=== PATIENT | male | born 1940 ===

== ENCOUNTER 2020-08-31 21:59 | Inpatient (IN) ==
[2020-08-31] MEDS ORDERED: Albuterol/Ipratropium NEB.SOL (2.5/0.5 MG) 3 ML NEB.SOLN ONE (22:03)
[2020-08-31] MEDS ORDERED: Dexamethasone IV 4 MG/ML VIAL 1 ml VIAL IM ONE (22:13)
[2020-08-31] MEDS ORDERED: NS 0.9% 1000 ml BAG 1,000 ML IV ONE (22:13)
[2020-08-31] MEDS: Albuterol 2.5mg/3 ml (0.083%) NEB.SOLN INH SCH (22:20)
[2020-08-31 22:27] LABS: ABS Lymphocytes 0.4 10^3/ul (1.0-4.8); ABS Monocytes 0.7 10^3/ul (0-0.8); ABS Neutrophils 10.4 10^3/ul (1.5-7.7); Hematocrit 51 % (42-52); Hemoglobin 17.2 g/dL (14.0-18.0); Lymphocyte % 3.7 %; Mean Corpuscular HGB Conc 34 g/dL (31-36); Mean Corpuscular Hemoglobin 31 pg (27-31); Mean Corpuscular Volume 93 fL (80-94); Mean Platelet Volume 10.2 fL (7.4-10.4); Platelet Count 240 10^3/uL (150-450); Red Cell Distribution Width 14 % (10-15); White Blood Count 11.5 10^3/uL (3.5-10.8)
[2020-08-31 22:35] LABS: Activated Partial Thrombo Time 39.3 seconds (26.0-38.0)
[2020-08-31 22:40] LABS: ALT 85 U/L (7-52); AST 121 U/L (13-39); Albumin 3.6 g/dL (3.2-5.2); Albumin/Globulin Ratio 1.1 (1-3); Alkaline Phosphatase 93 U/L (34-104); Anion Gap 17 mmol/L (2-11); BUN/Creatinine Ratio 24.2 (8-20); Blood Urea Nitrogen 51 mg/dL (6-24); C Reactive Protein 357.11 mg/L (<8.01); CO2 Carbon Dioxide 19 mmol/L (22-32); Calcium 8.9 mg/dL (8.6-10.3); Chloride 95 mmol/L (101-111); EGFR African American 36.9 (>60); EGFR Non-African American 30.5 (>60); Globulin 3.3 g/dL (2-4); Glucose 119 mg/dL (70-100); Potassium 4.4 mmol/L (3.5-5.0); Sodium 131 mmol/L (135-145); Total Protein 6.9 g/dL (6.4-8.9)
[2020-08-31 22:49] LABS: Troponin I 0.66 ng/mL (<0.03)
[2020-08-31] MEDS ORDERED: Albuterol/Ipratropium NEB.SOL (2.5/0.5 MG) 3 ML NEB.SOLN INH SCH (23:00)
[2020-08-31 23:11] LABS: Urine Appearance Cloudy; Urine Bilirubin Negative (Negative); Urine Blood 3+ (Negative); Urine Color Amber; Urine Glucose Negative (Negative); Urine Ketones Trace (Negative); Urine Nitrite Negative (Negative); Urine Protein 2+(100 mg/dL) (Negative); Urine Specific Gravity 1.021 (1.010-1.030); Urine Urobilinogen Negative (Negative)
[2020-08-31 23:15] LABS: Urine Bacteria 1+ (Absent); Urine Granular Casts Present (Absent); Urine Red Blood Cell 3+(>10/hpf) (Absent); Urine Transitional Epithelial Present (Absent); Urine White Blood Cell 3+(>20/hpf) (Absent)
[2020-09-01 00:20] LABS: INR 1.39 (0.82-1.09)
[2020-09-01 00:28] LABS: LDH 758 U/L (140-271)
[2020-09-01] MEDS ORDERED: Furosemide 20 mg/2 ml IV VIAL IV ONE ×2 (00:46→07:24)
[2020-09-01 00:47] LABS: Creatine Kinase 2739 U/L (10-223)
[2020-09-01 00:49] LABS: Ferritin 730.3 ng/mL (24-336)
[2020-09-01] MEDS ORDERED: cefTRIAXone 1 gm/50 mL NS BAG 1 GM/50 ML BAG IVPB SCH (01:00)
[2020-09-01] MEDS ORDERED: Remdesivir 5 MG/ML LIQ IV Vial 200 MG in NS 0.9% 250 ml 210 ML IV ONE (01:00)
[2020-09-01] MEDS ORDERED: Albuterol HFA INHALER 8 gm MDI INH PRN (01:20)
[2020-09-01 01:51] LABS: Urine Appearance Cloudy; Urine Bilirubin Negative (Negative); Urine Blood 3+ (Negative); Urine Color Amber; Urine Glucose Negative (Negative); Urine Ketones Trace (Negative); Urine Nitrite Negative (Negative); Urine Protein 2+(100 mg/dL) (Negative); Urine Specific Gravity 1.021 (1.010-1.030); Urine Urobilinogen Negative (Negative)
[2020-09-01] MEDS: Enoxaparin 40 MG/0.4 ML SYR SUBCUT SCH ×2 (02:09→12:49)
[2020-09-01 02:49] LABS: Urine Bacteria Absent (Absent); Urine Granular Casts Present (Absent); Urine Red Blood Cell 3+(>10/hpf) (Absent); Urine White Blood Cell Trace(0-5/hpf) (Absent)
[2020-09-01 04:54] LABS: BUN/Creatinine Ratio 27.5 (8-20); Blood Urea Nitrogen 53 mg/dL (6-24); CO2 Carbon Dioxide 16 mmol/L (22-32); Chloride 100 mmol/L (101-111); EGFR African American 40.9 (>60); EGFR Non-African American 33.8 (>60); Glucose 146 mg/dL (70-100); Sodium 132 mmol/L (135-145)
[2020-09-01 05:02] LABS: Anion Gap 16 mmol/L (2-11); Troponin I 0.72 ng/mL (<0.03)
[2020-09-01 05:09] LABS: ABS Lymphocytes 0.3 10^3/ul (1.0-4.8); ABS Monocytes 0.7 10^3/ul (0-0.8); Eosinophil % 0.1 %; Hematocrit 47 % (42-52); Hemoglobin 15.5 g/dL (14.0-18.0); Lymphocyte % 1.9 %; Mean Corpuscular HGB Conc 33 g/dL (31-36); Mean Corpuscular Hemoglobin 31 pg (27-31); Mean Corpuscular Volume 94 fL (80-94); Nucleated Red Blood Cells % 0.1; Red Blood Count 4.97 10^6 /uL (4.18-5.48); Red Cell Distribution Width 15 % (10-15)
[2020-09-01 08:48] LABS: Platelet Count Platelets clumped. 10^3/uL (150-450)
[2020-09-01] MEDS ORDERED: SPIRIVA Respimat (tiotropium) 2.5 mcg/inh Inhaler INH SCH (09:00)
[2020-09-01] MEDS ORDERED: Mometasone/Formoter 200/5 MDI INH SCH (09:00)
[2020-09-01] MEDS: methylPREDNISolone SOD 40 mg/ml 1 ml VIAL IV SCH ×2 (09:09→20:16)
[2020-09-01] MEDS: cefTRIAXone 1 gm/50 mL NS BAG 1 GM/50 ML BAG IVPB SCH ×2 (09:26→20:26)
[2020-09-01] MEDS ORDERED: Etomidate 40 mg/20 ml (2 MG/ML) 20 ml VIAL (40 mg) ONE ×2 (09:37→09:55)
[2020-09-01] MEDS ORDERED: Midazolam 10 mg/10 ml VIAL 1 mg/ml 10 ml VIAL (10 mg) ONE ×2 (09:37→09:55)
[2020-09-01] MEDS ORDERED: Succinylcholine 200 mg VIAL 20 mg/ml 10 ml VIAL (200 mg) ONE (09:45)
[2020-09-01] MEDS ORDERED: Propofol 10 mg/ml 100 ML BTL 100 ML ONE (09:45)
[2020-09-01] MEDS ORDERED: Rocuronium 50 mg VIAL 10 mg/ml 5 ml VIAL (50 mg) ONE ×4 (09:48→16:15)
[2020-09-01] MEDS ORDERED: Propofol 10 mg/ml 100 ML BTL 100 ML IV ONE (10:43)
[2020-09-01] MEDS: Propofol* 20 ML VIAL - FOR IV LINE PRIMING ONLY SCH ×2 (11:46→23:04)
[2020-09-01] MEDS ORDERED: Furosemide 40 mg/4 ml IV VIAL IV ONE (12:48)
[2020-09-01 13:43] LABS: ALT 80 U/L (7-52); AST 107 U/L (13-39); Albumin 3.5 g/dL (3.2-5.2); Alkaline Phosphatase 89 U/L (34-104); Anion Gap 12 mmol/L (2-11); BUN/Creatinine Ratio 28.5 (8-20); Blood Urea Nitrogen 57 mg/dL (6-24); CO2 Carbon Dioxide 21 mmol/L (22-32); Calcium 8.3 mg/dL (8.6-10.3); Chloride 102 mmol/L (101-111); EGFR African American 39.3 (>60); EGFR Non-African American 32.5 (>60); Globulin 3.4 g/dL (2-4); Glucose 175 mg/dL (70-100); Potassium 4.4 mmol/L (3.5-5.0); Sodium 135 mmol/L (135-145); Total Protein 6.9 g/dL (6.4-8.9)
[2020-09-01 13:51] LABS: Troponin I 0.51 ng/mL (<0.03)
[2020-09-01] MEDS ORDERED: Dexamethasone IV 4 MG/ML VIAL 1 ml VIAL IV SLOW PU ONE (16:00)
[2020-09-01] MEDS ORDERED: Dexamethasone IV 6 MG in NS 0.9% 50 ML 50 ML IVPB ONE (16:00)
[2020-09-01] MEDS ORDERED: Midazolam 2 mg/2 ml VIAL 1 mg/ml 2 ml VIAL (2 mg) IV SLOW PU ONE (17:09)
[2020-09-01] MEDS: Cisatracurium 100 MG in NS 0.9% 250 ml 200 ML IV SCH (17:50)
[2020-09-01] MEDS: fentaNYL INFUSION 50 MCG/ML 2,500 MCG/50 ML BAG IV SCH (18:27)
[2020-09-01] MEDS: Famotidine IV 10 MG/ML 2 ml VIAL (20 mg) IV SLOW PU SCH (20:17)
[2020-09-01] MEDS: Propofol 10 mg/ml 100 ML BTL 100 ML IV SCH (23:05)
[2020-09-02] MEDS: Enoxaparin 40 MG/0.4 ML SYR SUBCUT SCH ×2 (00:22→14:27)
[2020-09-02 04:21] LABS: ABS Lymphocytes 0.2 10^3/ul (1.0-4.8); ABS Monocytes 0.5 10^3/ul (0-0.8); ABS Neutrophils 12.1 10^3/ul (1.5-7.7); Hematocrit 44 % (42-52); Hemoglobin 14.7 g/dL (14.0-18.0); Lymphocyte % 1.7 %; Mean Corpuscular HGB Conc 34 g/dL (31-36); Mean Corpuscular Hemoglobin 32 pg (27-31); Mean Corpuscular Volume 94 fL (80-94); Mean Platelet Volume 10.3 fL (7.4-10.4); Nucleated Red Blood Cells % 0.1; Platelet Count 260 10^3/uL (150-450); Red Blood Count 4.66 10^6 /uL (4.18-5.48); Red Cell Distribution Width 14 % (10-15); White Blood Count 12.9 10^3/uL (3.5-10.8)
[2020-09-02 04:35] LABS: Albumin 2.8 g/dL (3.2-5.2); Albumin/Globulin Ratio 0.9 (1-3); BUN/Creatinine Ratio 30.2 (8-20); Calcium 7.8 mg/dL (8.6-10.3); EGFR African American 29.3 (>60); EGFR Non-African American 24.2 (>60); Globulin 3.2 g/dL (2-4); Magnesium 2.8 mg/dL (1.9-2.7); Potassium 3.9 mmol/L (3.5-5.0); Total Bilirubin 0.3 mg/dL (0.2-1.0)
[2020-09-02] MEDS: Propofol 10 mg/ml 100 ML BTL 100 ML IV SCH ×2 (05:24→20:56)
[2020-09-02] MEDS: methylPREDNISolone SOD 40 mg/ml 1 ml VIAL IV SCH ×2 (08:02→21:07)
[2020-09-02] MEDS: cefTRIAXone 1 gm/50 mL NS BAG 1 GM/50 ML BAG IVPB SCH ×2 (09:16→20:56)
[2020-09-02] MEDS ORDERED: Norepinephrine 16MCG/ML IVPRE 4,000 MCG/250 ML BAG IV ONE (09:47)
[2020-09-02] MEDS: Propofol* 20 ML VIAL - FOR IV LINE PRIMING ONLY SCH ×2 (11:30→21:07)
[2020-09-02] MEDS: Cisatracurium 100 MG in NS 0.9% 250 ml 200 ML IV SCH (11:45)
[2020-09-02] MEDS ORDERED: fentaNYL 100 mcg/2 ml 50 MCG/ML VIAL IV SLOW PU ONE (12:08)
[2020-09-02] MEDS: Chlorhexidine MOUTHWASH 0.12% 15 ML UDC SWISH SPIT SCH (21:07)
[2020-09-02] MEDS: Famotidine IV 10 MG/ML 2 ml VIAL (20 mg) IV SLOW PU SCH (21:07)
[2020-09-03] MEDS: fentaNYL INFUSION 50 MCG/ML 2,500 MCG/50 ML BAG IV SCH (02:56)
[2020-09-03] MEDS: Propofol 10 mg/ml 100 ML BTL 100 ML IV SCH ×4 (03:07→19:11)
[2020-09-03 04:39] LABS: Hematocrit 46 % (42-52); Hemoglobin 15.1 g/dL (14.0-18.0); Mean Corpuscular HGB Conc 33 g/dL (31-36); Mean Corpuscular Hemoglobin 31 pg (27-31); Mean Corpuscular Volume 95 fL (80-94); Mean Platelet Volume 9.7 fL (7.4-10.4); Platelet Count 364 10^3/uL (150-450); Red Blood Count 4.83 10^6 /uL (4.18-5.48); Red Cell Distribution Width 15 % (10-15); White Blood Count 17.2 10^3/uL (3.5-10.8)
[2020-09-03 05:02] LABS: BUN/Creatinine Ratio 24.6 (8-20); Calcium 7.7 mg/dL (8.6-10.3); EGFR African American 18.6 (>60); EGFR Non-African American 15.4 (>60); Phosphorus 12.3 mg/dL (2.5-5.0)
[2020-09-03 05:13] LABS: Magnesium 3.6 mg/dL (1.9-2.7); Potassium 5.7 mmol/L (3.5-5.0)
[2020-09-03] MEDS ORDERED: Sodium Polystyrene ORAL.SUSP 15 GM/60 ML BTL NG TUBE ONE (05:38)
[2020-09-03] MEDS: Artificial Tear OPHTH.OINT 3.5 GM BOTH EYES PRN ×2 (05:55→23:30)
[2020-09-03] MEDS ORDERED: Sodium Bicarbonate 8.4% SYR 50 ml SYRINGE IV ONE (06:54)
[2020-09-03] MEDS ORDERED: Sodium Bicarb 8.4% Vial 50 ML 150 MEQ in D5W 1000 ml BAG 850 ML IV SCH (07:00)
[2020-09-03 08:41] LABS: ABS Lymphocytes 0.3 10^3/ul (1.0-4.8); ABS Neutrophils 15.9 10^3/ul (1.5-7.7); Lymphocyte % 1.7 %; Nucleated Red Blood Cells % 0.1
[2020-09-03] MEDS: Chlorhexidine MOUTHWASH 0.12% 15 ML UDC SWISH SPIT SCH ×3 (09:48→20:31)
[2020-09-03] MEDS: methylPREDNISolone SOD 40 mg/ml 1 ml VIAL IV SCH ×2 (09:48→20:31)
[2020-09-03] MEDS: Cisatracurium 100 MG in NS 0.9% 250 ml 200 ML IV SCH (10:10)
[2020-09-03] MEDS: cefTRIAXone 1 gm/50 mL NS BAG 1 GM/50 ML BAG IVPB SCH ×2 (10:38→21:01)
[2020-09-03] MEDS: Propofol* 20 ML VIAL - FOR IV LINE PRIMING ONLY SCH ×2 (11:45→23:00)
[2020-09-03 13:36] LABS: BUN/Creatinine Ratio 23.9 (8-20); EGFR African American 15.7 (>60); EGFR Non-African American 12.9 (>60)
[2020-09-03 14:04] LABS: Potassium 4.5 mmol/L (3.5-5.0)
[2020-09-03] MEDS: Enoxaparin 30 MG/0.3 ML SYR SUBCUT SCH (14:08)
[2020-09-03] MEDS: Sodium Bicarb 8.4% Vial 50 ML 150 MEQ in D5W 1000 ml BAG 850 ML IV SCH (16:35)
[2020-09-03] MEDS: Norepinephrine 16MCG/ML IVPRE 4,000 MCG/250 ML BAG IV SCH (20:09)
[2020-09-03] MEDS: Famotidine IV 10 MG/ML 2 ml VIAL (20 mg) IV SLOW PU SCH (20:31)
[2020-09-04] MEDS: Propofol 10 mg/ml 100 ML BTL 100 ML IV SCH ×5 (01:33→23:06)
[2020-09-04] MEDS: Artificial Tear OPHTH.OINT 3.5 GM BOTH EYES SCH ×6 (02:11→22:41)
[2020-09-04 05:27] LABS: Hematocrit 39 % (42-52); Hemoglobin 12.9 g/dL (14.0-18.0); Mean Corpuscular HGB Conc 33 g/dL (31-36); Mean Corpuscular Hemoglobin 31 pg (27-31); Mean Corpuscular Volume 94 fL (80-94); Platelet Count 297 10^3/uL (150-450); Red Blood Count 4.15 10^6 /uL (4.18-5.48); Red Cell Distribution Width 15 % (10-15); White Blood Count 9.4 10^3/uL (3.5-10.8)
[2020-09-04 05:51] LABS: BUN/Creatinine Ratio 23.2 (8-20); EGFR African American 13.3 (>60); Magnesium 3.2 mg/dL (1.9-2.7); Phosphorus 8.7 mg/dL (2.5-5.0)
[2020-09-04 05:54] LABS: ABS Lymphocytes 0.1 10^3/ul (1.0-4.8); ABS Monocytes 0.7 10^3/ul (0-0.8); ABS Neutrophils 8.6 10^3/ul (1.5-7.7); Lymphocyte % 0.9 %; Nucleated Red Blood Cells % 0.1
[2020-09-04] MEDS: Sodium Bicarb 8.4% Vial 50 ML 150 MEQ in D5W 1000 ml BAG 850 ML IV SCH ×2 (05:55→19:51)
[2020-09-04 06:07] LABS: Calcium 6.4 mg/dL (8.6-10.3)
[2020-09-04 06:13] LABS: Potassium 3.8 mmol/L (3.5-5.0)
[2020-09-04] MEDS: Cisatracurium 100 MG in NS 0.9% 250 ml 200 ML IV SCH (08:32)
[2020-09-04] MEDS: methylPREDNISolone SOD 40 mg/ml 1 ml VIAL IV SCH ×2 (08:42→20:15)
[2020-09-04] MEDS: Chlorhexidine MOUTHWASH 0.12% 15 ML UDC SWISH SPIT SCH ×3 (08:42→20:15)
[2020-09-04] MEDS: cefTRIAXone 1 gm/50 mL NS BAG 1 GM/50 ML BAG IVPB SCH ×2 (09:04→20:02)
[2020-09-04] MEDS ORDERED: CALCIUM GLUCONATE 1GM/50ML NS 1 GM/50 ML BAG IV ONE (09:38)
[2020-09-04] MEDS: Enoxaparin 30 MG/0.3 ML SYR SUBCUT SCH (12:42)
[2020-09-04] MEDS ORDERED: LORazepam 2 mg VIAL 1 ml IV PUSH ONE (13:50)
[2020-09-04] MEDS ORDERED: Lorazepam PYXIS KEY PRN (13:50)
[2020-09-04] MEDS: Propofol* 20 ML VIAL - FOR IV LINE PRIMING ONLY SCH ×2 (14:05→22:41)
[2020-09-04] MEDS: Saline FLUSH-CENTRAL 10 ML SYRINGE CENT\\PICC SCH (20:14)
[2020-09-04] MEDS: Pantoprazole VIAL 40 MG VIAL IV SCH (20:15)
[2020-09-04] MEDS ORDERED: Heparin 5000 UNITS/ML 1 mL VIAL SUBCUT SCH (21:00)
[2020-09-04] MEDS: Norepinephrine 16MCG/ML IVPRE 4,000 MCG/250 ML BAG IV SCH (23:06)
[2020-09-05] MEDS: Artificial Tear OPHTH.OINT 3.5 GM BOTH EYES SCH ×6 (02:48→20:35)
[2020-09-05] MEDS: Propofol 10 mg/ml 100 ML BTL 100 ML IV SCH ×5 (03:38→21:34)
[2020-09-05 05:16] LABS: Hematocrit 38 % (42-52); Hemoglobin 12.6 g/dL (14.0-18.0); Mean Corpuscular HGB Conc 33 g/dL (31-36); Mean Corpuscular Hemoglobin 31 pg (27-31); Mean Corpuscular Volume 94 fL (80-94); Mean Platelet Volume 9.8 fL (7.4-10.4); Platelet Count 262 10^3/uL (150-450); Red Blood Count 4.06 10^6 /uL (4.18-5.48); Red Cell Distribution Width 15 % (10-15); White Blood Count 10.5 10^3/uL (3.5-10.8)
[2020-09-05 05:29] LABS: EGFR African American 11.9 (>60); EGFR Non-African American 9.8 (>60); Magnesium 3.2 mg/dL (1.9-2.7); Phosphorus 9.7 mg/dL (2.5-5.0); Potassium 3.7 mmol/L (3.5-5.0)
[2020-09-05 05:47] LABS: BUN/Creatinine Ratio 25.7 (8-20); Calcium 6.4 mg/dL (8.6-10.3)
[2020-09-05] MEDS ORDERED: Calcium Gluconate 2 GM in NS 0.9% 100 ml BAG 100 ML IV ONE (05:49)
[2020-09-05] MEDS: fentaNYL INFUSION 50 MCG/ML 2,500 MCG/50 ML BAG IV SCH (06:37)
[2020-09-05 06:45] LABS: ABS Eosinophils 0.1 10^3/ul (0-0.6); ABS Lymphocytes 0.1 10^3/ul (1.0-4.8); ABS Monocytes 0.5 10^3/ul (0-0.8); ABS Neutrophils 9.7 10^3/ul (1.5-7.7); Nucleated Red Blood Cells % 0.1
[2020-09-05] MEDS: Saline FLUSH-CENTRAL 10 ML SYRINGE CENT\\PICC SCH ×2 (07:23→20:34)
[2020-09-05] MEDS: Propofol* 20 ML VIAL - FOR IV LINE PRIMING ONLY SCH (07:56)
[2020-09-05] MEDS: cefTRIAXone 1 gm/50 mL NS BAG 1 GM/50 ML BAG IVPB SCH ×2 (08:00→20:22)
[2020-09-05] MEDS: Pantoprazole VIAL 40 MG VIAL IV SCH ×2 (08:06→20:34)
[2020-09-05] MEDS: methylPREDNISolone SOD 40 mg/ml 1 ml VIAL IV SCH ×2 (08:06→20:34)
[2020-09-05] MEDS: Chlorhexidine MOUTHWASH 0.12% 15 ML UDC SWISH SPIT SCH ×3 (08:06→20:34)
[2020-09-05] MEDS: Sodium Bicarb 8.4% Vial 50 ML 150 MEQ in D5W 1000 ml BAG 850 ML IV SCH (09:01)
[2020-09-05] MEDS ORDERED: CALCIUM GLUCONATE 1GM/50ML NS 1 GM/50 ML BAG IV ONE (09:06)
[2020-09-06] MEDS: Propofol* 20 ML VIAL - FOR IV LINE PRIMING ONLY SCH ×2 (00:55→15:13)
[2020-09-06] MEDS: Propofol 10 mg/ml 100 ML BTL 100 ML IV SCH ×2 (01:47→06:30)
[2020-09-06] MEDS: Artificial Tear OPHTH.OINT 3.5 GM BOTH EYES SCH ×6 (02:14→20:25)
[2020-09-06] MEDS ORDERED: Midazolam 2 mg/2 ml VIAL 1 mg/ml 2 ml VIAL (2 mg) IV SLOW PU ONE (04:56)
[2020-09-06] MEDS: Cisatracurium 100 MG in NS 0.9% 250 ml 200 ML IV SCH (04:59)
[2020-09-06 05:21] LABS: EGFR African American 10.2 (>60); EGFR Non-African American 8.5 (>60); Magnesium 3.4 mg/dL (1.9-2.7); Potassium 4.3 mmol/L (3.5-5.0)
[2020-09-06 05:38] LABS: BUN/Creatinine Ratio 25.9 (8-20)
[2020-09-06] MEDS: Heparin 1,000 UNIT/ML 10 ml (10,000 UNITS) CATHLAB/DIALYSIS DIALYSIS ONE ×2 (07:30→10:00)
[2020-09-06] MEDS ORDERED: Propofol 10 mg/ml 100 ML BTL 100 ML IV SCH (07:36)
[2020-09-06] MEDS: methylPREDNISolone SOD 40 mg/ml 1 ml VIAL IV SCH ×2 (08:17→19:42)
[2020-09-06] MEDS: Chlorhexidine MOUTHWASH 0.12% 15 ML UDC SWISH SPIT SCH ×3 (08:17→19:41)
[2020-09-06] MEDS: Saline FLUSH-CENTRAL 10 ML SYRINGE CENT\\PICC SCH ×2 (08:17→17:54)
[2020-09-06] MEDS: Pantoprazole VIAL 40 MG VIAL IV SCH ×2 (08:17→19:42)
[2020-09-06] MEDS: cefTRIAXone 1 gm/50 mL NS BAG 1 GM/50 ML BAG IVPB SCH ×2 (08:30→21:15)
[2020-09-06] MEDS: Norepinephrine 16MCG/ML IVPRE 4,000 MCG/250 ML BAG IV SCH (08:30)
[2020-09-06 11:04] LABS: Hepatitis B Surface Antigen Nonreactive (Nonreactive)
[2020-09-06 11:21] LABS: Hepatitis B Surface Ab Not Immune (Immune)
[2020-09-06] MEDS: Heparin 5000 UNITS/ML 1 mL VIAL SUBCUT SCH ×2 (11:37→19:42)
[2020-09-06] MEDS: Midazolam 50 MG VIAL IV DRIP 50 ML IV SCH ×2 (15:22→20:36)
[2020-09-06] MEDS ORDERED: Chlorhexidine MOUTHWASH 0.12% 15 ML UDC TOPICAL SCH (22:00)
[2020-09-07] MEDS: Chlorhexidine MOUTHWASH 0.12% 15 ML UDC TOPICAL SCH ×7 (01:50→23:06)
[2020-09-07] MEDS: Artificial Tear OPHTH.OINT 3.5 GM BOTH EYES SCH ×6 (01:51→20:41)
[2020-09-07] MEDS: Midazolam 50 MG VIAL IV DRIP 50 ML IV SCH ×4 (04:31→22:26)
[2020-09-07 04:49] LABS: Calcium 6.9 mg/dL (8.6-10.3); EGFR African American 10.2 (>60); EGFR Non-African American 8.4 (>60); Magnesium 3.4 mg/dL (1.9-2.7); Phosphorus 11.7 mg/dL (2.5-5.0); Potassium 4.5 mmol/L (3.5-5.0)
[2020-09-07] MEDS: fentaNYL INFUSION 50 MCG/ML 2,500 MCG/50 ML BAG IV SCH ×2 (06:48→20:01)
[2020-09-07] MEDS: Heparin 1,000 UNIT/ML 10 ml (10,000 UNITS) CATHLAB/DIALYSIS DIALYSIS ONE ×4 (08:34→11:30)
[2020-09-07] MEDS: Pantoprazole VIAL 40 MG VIAL IV SCH ×2 (08:39→20:41)
[2020-09-07] MEDS: Heparin 5000 UNITS/ML 1 mL VIAL SUBCUT SCH ×2 (08:39→20:41)
[2020-09-07] MEDS: Multivitamins ADULT w/MIN LIQ 15 ML UDC PO SCH (08:39)
[2020-09-07] MEDS: Saline FLUSH-CENTRAL 10 ML SYRINGE CENT\\PICC SCH ×2 (09:02→19:31)
[2020-09-07] MEDS: cefTRIAXone 1 gm/50 mL NS BAG 1 GM/50 ML BAG IVPB SCH ×2 (09:03→21:59)
[2020-09-07] MEDS ORDERED: Albuterol 2.5mg/3 ml (0.083%) NEB.SOLN INH PRN (09:08)
[2020-09-07 21:21] LABS: Calcium 7.6 mg/dL (8.6-10.3); EGFR African American 9.7 (>60); Magnesium 3.5 mg/dL (1.9-2.7); Phosphorus 14.6 mg/dL (2.5-5.0)
[2020-09-07 21:41] LABS: BUN/Creatinine Ratio 24.1 (8-20)
[2020-09-07] MEDS ORDERED: Sodium Polystyrene ORAL.SUSP 15 GM/60 ML BTL PO ONE (22:37)
[2020-09-07] MEDS ORDERED: CALCIUM GLUCONATE 1GM/50ML NS 1 GM/50 ML BAG IV ONE (22:37)
[2020-09-07] MEDS ORDERED: Dextrose 50% Syringe 50 ml 25 GM/50 ML SYRINGE IV PUSH ONE (22:37)
[2020-09-08] MEDS: Artificial Tear OPHTH.OINT 3.5 GM BOTH EYES SCH ×6 (02:23→19:59)
[2020-09-08] MEDS: Norepinephrine 16MCG/ML IVPRE 4,000 MCG/250 ML BAG IV SCH ×2 (02:34→10:45)
[2020-09-08] MEDS: Midazolam 50 MG VIAL IV DRIP 50 ML IV SCH ×3 (03:59→14:30)
[2020-09-08] MEDS: Chlorhexidine MOUTHWASH 0.12% 15 ML UDC TOPICAL SCH ×5 (05:10→19:58)
[2020-09-08 05:41] LABS: Calcium 7.5 mg/dL (8.6-10.3); EGFR African American 8.9 (>60); EGFR Non-African American 7.3 (>60); Magnesium 3.6 mg/dL (1.9-2.7); Phosphorus 13.1 mg/dL (2.5-5.0)
[2020-09-08 05:43] LABS: Potassium 5.4 mmol/L (3.5-5.0)
[2020-09-08 05:56] LABS: BUN/Creatinine Ratio 23.6 (8-20)
[2020-09-08] MEDS: Heparin 1,000 UNIT/ML 10 ml (10,000 UNITS) CATHLAB/DIALYSIS DIALYSIS ONE ×4 (07:20→09:50)
[2020-09-08] MEDS: cefTRIAXone 1 gm/50 mL NS BAG 1 GM/50 ML BAG IVPB SCH ×2 (09:15→21:31)
[2020-09-08] MEDS: Saline FLUSH-CENTRAL 10 ML SYRINGE CENT\\PICC SCH ×2 (09:15→19:33)
[2020-09-08] MEDS: Multivitamins ADULT w/MIN LIQ 15 ML UDC PO SCH (09:19)
[2020-09-08] MEDS: Heparin 5000 UNITS/ML 1 mL VIAL SUBCUT SCH ×2 (09:27→19:58)
[2020-09-08] MEDS: Pantoprazole VIAL 40 MG VIAL IV SCH ×2 (09:29→19:58)
[2020-09-08] MEDS: fentaNYL INFUSION 50 MCG/ML 2,500 MCG/50 ML BAG IV SCH (09:36)
[2020-09-08] MEDS ORDERED: Albuterol/Ipratropium NEB.SOL (2.5/0.5 MG) 3 ML NEB.SOLN INH ONE (14:40)
[2020-09-08] MEDS: Lanthanum 500 mg CHEW TAB SCH (16:56)
[2020-09-08 20:52] LABS: Albumin 2.7 g/dL (3.2-5.2); Albumin/Globulin Ratio 0.8 (1-3); BUN/Creatinine Ratio 19.8 (8-20); Calcium 7.9 mg/dL (8.6-10.3); EGFR African American 11.1 (>60); EGFR Non-African American 9.2 (>60); Globulin 3.6 g/dL (2-4); Total Bilirubin 0.3 mg/dL (0.2-1.0); Total Protein 6.3 g/dL (6.4-8.9)
[2020-09-08 21:15] LABS: Potassium 5.3 mmol/L (3.5-5.0)
[2020-09-09] MEDS: Chlorhexidine MOUTHWASH 0.12% 15 ML UDC TOPICAL SCH ×6 (00:31→20:29)
[2020-09-09] MEDS: Artificial Tear OPHTH.OINT 3.5 GM BOTH EYES SCH ×6 (00:33→23:28)
[2020-09-09] MEDS: Midazolam 50 MG VIAL IV DRIP 50 ML IV SCH (01:10)
[2020-09-09] MEDS: Norepinephrine 16MCG/ML IVPRE 4,000 MCG/250 ML BAG IV SCH (03:41)
[2020-09-09 05:03] LABS: Hematocrit 36 % (42-52); Hemoglobin 11.6 g/dL (14.0-18.0); Mean Corpuscular HGB Conc 32 g/dL (31-36); Mean Corpuscular Hemoglobin 31 pg (27-31); Mean Corpuscular Volume 95 fL (80-94); Mean Platelet Volume 10.8 fL (7.4-10.4); Platelet Count 202 10^3/uL (150-450); Red Blood Count 3.78 10^6 /uL (4.18-5.48); Red Cell Distribution Width 15 % (10-15); White Blood Count 14.2 10^3/uL (3.5-10.8)
[2020-09-09 05:21] LABS: Calcium 7.6 mg/dL (8.6-10.3); EGFR African American 9.8 (>60); EGFR Non-African American 8.1 (>60)
[2020-09-09 05:28] LABS: Potassium 5.6 mmol/L (3.5-5.0)
[2020-09-09 05:38] LABS: BUN/Creatinine Ratio 20.5 (8-20)
[2020-09-09 07:27] LABS: ABS Basophils 0.1 10^3/ul (0-0.2); ABS Lymphocytes 0.3 10^3/ul (1.0-4.8); ABS Monocytes 0.4 10^3/ul (0-0.8); ABS Neutrophils 13.5 10^3/ul (1.5-7.7); Eosinophil % 0.1 %
[2020-09-09] MEDS: Saline FLUSH-CENTRAL 10 ML SYRINGE CENT\\PICC SCH (08:01)
[2020-09-09] MEDS: Multivitamins ADULT w/MIN LIQ 15 ML UDC PO SCH (08:42)
[2020-09-09] MEDS: Heparin 5000 UNITS/ML 1 mL VIAL SUBCUT SCH ×2 (08:43→20:29)
[2020-09-09] MEDS: Pantoprazole VIAL 40 MG VIAL IV SCH ×2 (08:43→20:29)
[2020-09-09] MEDS: Lanthanum 500 mg CHEW TAB SCH ×3 (09:07→17:53)
[2020-09-09] MEDS ORDERED: Albuterol HFA INHALER 8 gm MDI INH SCH (13:00)
[2020-09-09] MEDS ORDERED: Albuterol HFA INHALER 8 gm MDI INH PRN (14:24)
[2020-09-09] MEDS ORDERED: Albuterol 2.5mg/3 ml (0.083%) NEB.SOLN INH ONE (15:51)
[2020-09-09] MEDS ORDERED: Saline FLUSH-CENTRAL 10 ML SYRINGE CENT\\PICC SCH (16:00)
[2020-09-09] MEDS: Sodium Bicarb 8.4% Vial 50 ML 150 MEQ in D5W 1000 ml BAG 850 ML IV SCH (16:01)
[2020-09-09] MEDS ORDERED: Albuterol 2.5mg/3 ml (0.083%) NEB.SOLN INH SCH (19:00)
[2020-09-09] MEDS: Albuterol 2.5mg/3 ml (0.083%) NEB.SOLN INH SCH (20:16)
[2020-09-10] MEDS: Chlorhexidine MOUTHWASH 0.12% 15 ML UDC TOPICAL SCH ×6 (00:13→19:49)
[2020-09-10] MEDS: Albuterol 2.5mg/3 ml (0.083%) NEB.SOLN INH SCH ×4 (00:40→20:16)
[2020-09-10] MEDS: Artificial Tear OPHTH.OINT 3.5 GM BOTH EYES SCH ×6 (01:53→22:10)
[2020-09-10] MEDS: Sodium Bicarb 8.4% Vial 50 ML 150 MEQ in D5W 1000 ml BAG 850 ML IV SCH ×2 (01:58→15:17)
[2020-09-10] MEDS: Multivitamins ADULT w/MIN LIQ 15 ML UDC PO SCH (08:37)
[2020-09-10] MEDS: Pantoprazole VIAL 40 MG VIAL IV SCH ×2 (08:37→22:09)
[2020-09-10] MEDS: Heparin 5000 UNITS/ML 1 mL VIAL SUBCUT SCH ×2 (08:38→22:10)
[2020-09-10] MEDS ORDERED: Albumin Human 25% 12.5 GM/50 ML BTL IV PRN (09:00)
[2020-09-10] MEDS ORDERED: Heparin DRIP 25,000 UNITS BAG 25,000 UNITS/500 ML BAG IV SCH (09:00)
[2020-09-10] MEDS: Heparin 1,000 UNIT/ML 10 ml (10,000 UNITS) CATHLAB/DIALYSIS DIALYSIS ONE ×2 (09:11→11:58)
[2020-09-10 09:53] LABS: Hematocrit 37 % (42-52); Hemoglobin 12.2 g/dL (14.0-18.0); Mean Corpuscular HGB Conc 33 g/dL (31-36); Mean Corpuscular Hemoglobin 31 pg (27-31); Mean Corpuscular Volume 93 fL (80-94); Mean Platelet Volume 10.1 fL (7.4-10.4); Platelet Count 180 10^3/uL (150-450); Red Blood Count 3.92 10^6 /uL (4.18-5.48); Red Cell Distribution Width 15 % (10-15); White Blood Count 15.9 10^3/uL (3.5-10.8)
[2020-09-10 10:07] LABS: Albumin 2.7 g/dL (3.2-5.2); Albumin/Globulin Ratio 0.7 (1-3); Calcium 6.9 mg/dL (8.6-10.3); EGFR African American 9.6 (>60); Globulin 3.7 g/dL (2-4); Phosphorus 10.2 mg/dL (2.5-5.0); Potassium 4.3 mmol/L (3.5-5.0); Total Bilirubin 0.4 mg/dL (0.2-1.0); Total Protein 6.4 g/dL (6.4-8.9)
[2020-09-10] MEDS: Lanthanum 500 mg CHEW TAB SCH ×3 (10:10→17:51)
[2020-09-10 10:45] LABS: BUN/Creatinine Ratio 21.4 (8-20)
[2020-09-10 11:40] LABS: ABS Basophils 0.1 10^3/ul (0-0.2); ABS Lymphocytes 0.2 10^3/ul (1.0-4.8); ABS Monocytes 0.6 10^3/ul (0-0.8); Eosinophil % 0.3 %; Lymphocyte % 1.3 %
[2020-09-10] MEDS ORDERED: Methylnaltrexone SQ (NF) 12 MG/0.6 ML VIAL SUBCUT ONE ×2 (20:17→21:00)
[2020-09-10 20:26] LABS: Albumin 2.5 g/dL (3.2-5.2); Albumin/Globulin Ratio 0.7 (1-3); Calcium 6.7 mg/dL (8.6-10.3); EGFR African American 10.9 (>60); Globulin 3.4 g/dL (2-4); Potassium 4.8 mmol/L (3.5-5.0); Total Bilirubin 0.4 mg/dL (0.2-1.0); Total Protein 5.9 g/dL (6.4-8.9)
[2020-09-11] MEDS: Albuterol 2.5mg/3 ml (0.083%) NEB.SOLN INH SCH ×4 (02:25→19:25)
[2020-09-11] MEDS: Chlorhexidine MOUTHWASH 0.12% 15 ML UDC TOPICAL SCH ×7 (03:40→22:24)
[2020-09-11] MEDS: Artificial Tear OPHTH.OINT 3.5 GM BOTH EYES SCH ×6 (03:40→21:41)
[2020-09-11 05:26] LABS: Hematocrit 34 % (42-52); Mean Corpuscular HGB Conc 33 g/dL (31-36); Mean Corpuscular Hemoglobin 31 pg (27-31); Mean Corpuscular Volume 94 fL (80-94); Mean Platelet Volume 11.6 fL (7.4-10.4); Platelet Count 157 10^3/uL (150-450); Red Cell Distribution Width 15 % (10-15); White Blood Count 14.4 10^3/uL (3.5-10.8)
[2020-09-11 05:41] LABS: Albumin 2.5 g/dL (3.2-5.2); Albumin/Globulin Ratio 0.8 (1-3); BUN/Creatinine Ratio 18.9 (8-20); Calcium 6.6 mg/dL (8.6-10.3); EGFR African American 9.6 (>60); EGFR Non-African American 7.9 (>60); Globulin 3.3 g/dL (2-4); Magnesium 2.9 mg/dL (1.9-2.7); Phosphorus 11.7 mg/dL (2.5-5.0); Total Bilirubin 0.4 mg/dL (0.2-1.0); Total Protein 5.8 g/dL (6.4-8.9)
[2020-09-11 05:50] LABS: Potassium 5.6 mmol/L (3.5-5.0)
[2020-09-11 06:41] LABS: ABS Basophils 0.1 10^3/ul (0-0.2); ABS Lymphocytes 0.1 10^3/ul (1.0-4.8); ABS Monocytes 0.4 10^3/ul (0-0.8); ABS Neutrophils 13.8 10^3/ul (1.5-7.7); Lymphocyte % 0.9 %
[2020-09-11] MEDS: Midazolam 50 MG VIAL IV DRIP 50 ML IV SCH (07:57)
[2020-09-11] MEDS: Lanthanum 500 mg CHEW TAB SCH ×3 (08:19→18:04)
[2020-09-11] MEDS: Heparin 5000 UNITS/ML 1 mL VIAL SUBCUT SCH ×2 (08:22→21:40)
[2020-09-11] MEDS: Multivitamins ADULT w/MIN LIQ 15 ML UDC PO SCH (08:23)
[2020-09-11] MEDS: Pantoprazole VIAL 40 MG VIAL IV SCH ×2 (08:23→21:40)
[2020-09-11] MEDS: Metoclopramide 5 MG/ML VIAL (10 mg) IV SLOW PU SCH ×2 (15:07→21:40)
[2020-09-12] MEDS: Albuterol 2.5mg/3 ml (0.083%) NEB.SOLN INH SCH ×4 (01:04→20:38)
[2020-09-12] MEDS: Midazolam 50 MG VIAL IV DRIP 50 ML IV SCH ×2 (01:54→19:43)
[2020-09-12] MEDS: Artificial Tear OPHTH.OINT 3.5 GM BOTH EYES SCH ×6 (02:09→20:49)
[2020-09-12] MEDS: Metoclopramide 5 MG/ML VIAL (10 mg) IV SLOW PU SCH ×4 (02:09→20:48)
[2020-09-12] MEDS: Chlorhexidine MOUTHWASH 0.12% 15 ML UDC TOPICAL SCH ×6 (05:06→23:27)
[2020-09-12 05:48] LABS: Hematocrit 34 % (42-52); Mean Corpuscular HGB Conc 33 g/dL (31-36); Mean Corpuscular Hemoglobin 30 pg (27-31); Mean Corpuscular Volume 93 fL (80-94); Mean Platelet Volume 11.1 fL (7.4-10.4); Platelet Count 156 10^3/uL (150-450); Red Blood Count 3.62 10^6 /uL (4.18-5.48); Red Cell Distribution Width 14 % (10-15)
[2020-09-12 06:01] LABS: Albumin 2.6 g/dL (3.2-5.2); Albumin/Globulin Ratio 0.8 (1-3); EGFR African American 7.4 (>60); EGFR Non-African American 6.1 (>60); Globulin 3.2 g/dL (2-4); Magnesium 3.1 mg/dL (1.9-2.7); Phosphorus 14.3 mg/dL (2.5-5.0); Total Bilirubin 0.4 mg/dL (0.2-1.0); Total Protein 5.8 g/dL (6.4-8.9)
[2020-09-12 06:05] LABS: Calcium 6.2 mg/dL (8.6-10.3); Potassium 5.5 mmol/L (3.5-5.0)
[2020-09-12 06:16] LABS: BUN/Creatinine Ratio 20.7 (8-20)
[2020-09-12] MEDS ORDERED: Heparin 1,000 UNIT/ML 10 ml (10,000 UNITS) CATHLAB/DIALYSIS DIALYSIS ONE (06:45)
[2020-09-12 06:47] LABS: ABS Lymphocytes 0.2 10^3/ul (1.0-4.8); ABS Monocytes 0.6 10^3/ul (0-0.8); ABS Neutrophils 14.2 10^3/ul (1.5-7.7); Eosinophil % 0.1 %; Lymphocyte % 1.6 %
[2020-09-12] MEDS: Multivitamins ADULT w/MIN LIQ 15 ML UDC PO SCH (09:58)
[2020-09-12] MEDS: Lanthanum 500 mg CHEW TAB SCH ×3 (09:58→16:33)
[2020-09-12] MEDS: Heparin 5000 UNITS/ML 1 mL VIAL SUBCUT SCH ×2 (10:11→20:48)
[2020-09-12] MEDS: Pantoprazole VIAL 40 MG VIAL IV SCH ×2 (10:13→20:48)
[2020-09-12] MEDS ORDERED: Heparin 1,000 UNIT/ML 10 ml (10,000 UNITS) CATHLAB/DIALYSIS IV PRN (13:07)
[2020-09-13] MEDS: Albuterol 2.5mg/3 ml (0.083%) NEB.SOLN INH SCH ×4 (01:56→19:22)
[2020-09-13] MEDS: Metoclopramide 5 MG/ML VIAL (10 mg) IV SLOW PU SCH ×4 (02:51→19:19)
[2020-09-13] MEDS: Artificial Tear OPHTH.OINT 3.5 GM BOTH EYES SCH ×6 (02:51→21:58)
[2020-09-13] MEDS: Chlorhexidine MOUTHWASH 0.12% 15 ML UDC TOPICAL SCH ×5 (02:52→19:19)
[2020-09-13 04:41] LABS: Hematocrit 35 % (42-52); Hemoglobin 11.4 g/dL (14.0-18.0); Mean Corpuscular HGB Conc 33 g/dL (31-36); Mean Corpuscular Hemoglobin 30 pg (27-31); Mean Corpuscular Volume 94 fL (80-94); Mean Platelet Volume 11.7 fL (7.4-10.4); Platelet Count 180 10^3/uL (150-450); Red Blood Count 3.74 10^6 /uL (4.18-5.48); Red Cell Distribution Width 15 % (10-15)
[2020-09-13 04:58] LABS: Albumin 2.8 g/dL (3.2-5.2); Albumin/Globulin Ratio 0.8 (1-3); BUN/Creatinine Ratio 19.5 (8-20); Calcium 7.2 mg/dL (8.6-10.3); EGFR African American 10.9 (>60); Globulin 3.4 g/dL (2-4); Magnesium 2.8 mg/dL (1.9-2.7); Phosphorus 12.7 mg/dL (2.5-5.0); Total Bilirubin 0.4 mg/dL (0.2-1.0); Total Protein 6.2 g/dL (6.4-8.9)
[2020-09-13 04:59] LABS: Potassium 5.6 mmol/L (3.5-5.0)
[2020-09-13 06:21] LABS: ABS Lymphocytes 0.3 10^3/ul (1.0-4.8); ABS Monocytes 0.6 10^3/ul (0-0.8); ABS Neutrophils 19.1 10^3/ul (1.5-7.7); Eosinophil % 0.1 %; Lymphocyte % 1.4 %
[2020-09-13] MEDS ORDERED: Heparin DRIP 25,000 UNITS BAG 25,000 UNITS/500 ML BAG IV ONE (08:00)
[2020-09-13] MEDS ORDERED: Norepinephrine 16MCG/ML IVPRE 4,000 MCG/250 ML BAG IV ONE (08:37)
[2020-09-13] MEDS: Norepinephrine 16MCG/ML IVPRE 4,000 MCG/250 ML BAG IV SCH (08:53)
[2020-09-13] MEDS ORDERED: Heparin 1,000 UNIT/ML 10 ml (10,000 UNITS) CATHLAB/DIALYSIS DIALYSIS ONE (09:00)
[2020-09-13] MEDS: Heparin 5000 UNITS/ML 1 mL VIAL SUBCUT SCH ×2 (10:45→21:19)
[2020-09-13] MEDS: Lanthanum 500 mg CHEW TAB SCH ×3 (11:16→18:05)
[2020-09-13] MEDS: Pantoprazole VIAL 40 MG VIAL IV SCH ×2 (11:17→21:58)
[2020-09-13] MEDS: Multivitamins ADULT w/MIN LIQ 15 ML UDC PO SCH (11:17)
[2020-09-13] MEDS ORDERED: fentaNYL INFUSION 50 MCG/ML 2,500 MCG/50 ML BAG IV SCH (12:00)
[2020-09-13] MEDS: Midazolam 50 MG VIAL IV DRIP 50 ML IV SCH (14:33)
[2020-09-14] MEDS: Chlorhexidine MOUTHWASH 0.12% 15 ML UDC TOPICAL SCH ×7 (00:05→23:51)
[2020-09-14] MEDS: Albuterol 2.5mg/3 ml (0.083%) NEB.SOLN INH SCH ×5 (00:43→23:46)
[2020-09-14] MEDS: Artificial Tear OPHTH.OINT 3.5 GM BOTH EYES SCH ×6 (02:18→21:12)
[2020-09-14] MEDS: Metoclopramide 5 MG/ML VIAL (10 mg) IV SLOW PU SCH ×4 (02:19→21:12)
[2020-09-14] MEDS: Norepinephrine 16MCG/ML IVPRE 4,000 MCG/250 ML BAG IV SCH (03:23)
[2020-09-14 04:30] LABS: Hematocrit 33 % (42-52); Hemoglobin 10.4 g/dL (14.0-18.0); Mean Corpuscular HGB Conc 32 g/dL (31-36); Mean Corpuscular Hemoglobin 30 pg (27-31); Mean Corpuscular Volume 95 fL (80-94); Mean Platelet Volume 11.4 fL (7.4-10.4); Platelet Count 170 10^3/uL (150-450); Red Blood Count 3.44 10^6 /uL (4.18-5.48); Red Cell Distribution Width 15 % (10-15); White Blood Count 25.8 10^3/uL (3.5-10.8)
[2020-09-14 04:55] LABS: BUN/Creatinine Ratio 20.3 (8-20); Calcium 7.3 mg/dL (8.6-10.3); EGFR African American 13.2 (>60); EGFR Non-African American 10.9 (>60); Magnesium 2.5 mg/dL (1.9-2.7); Phosphorus 10.5 mg/dL (2.5-5.0)
[2020-09-14 05:02] LABS: Potassium 5.4 mmol/L (3.5-5.0)
[2020-09-14 06:55] LABS: ABS Lymphocytes 0.2 10^3/ul (1.0-4.8); ABS Monocytes 0.5 10^3/ul (0-0.8); Eosinophil % 0.1 %; Lymphocyte % 0.9 %
[2020-09-14] MEDS: Pantoprazole VIAL 40 MG VIAL IV SCH ×2 (07:49→21:12)
[2020-09-14] MEDS: Multivitamins ADULT w/MIN LIQ 15 ML UDC PO SCH (07:49)
[2020-09-14] MEDS: Lanthanum 500 mg CHEW TAB SCH ×3 (07:56→16:27)
[2020-09-14] MEDS ORDERED: Albumin Human 25% 12.5 GM/50 ML BTL IV PRN (08:00)
[2020-09-14] MEDS ORDERED: Heparin DRIP 25,000 UNITS BAG 25,000 UNITS/500 ML BAG IV SCH (09:00)
[2020-09-14] MEDS: Heparin 1,000 UNIT/ML 10 ml (10,000 UNITS) CATHLAB/DIALYSIS DIALYSIS ONE ×2 (09:28→12:19)
[2020-09-14] MEDS: Heparin 5000 UNITS/ML 1 mL VIAL SUBCUT SCH ×2 (11:16→21:12)
[2020-09-14 11:22] LABS: Urine Appearance Cloudy; Urine Bilirubin Negative (Negative); Urine Blood 3+ (Negative); Urine Color Amber; Urine Glucose Negative (Negative); Urine Ketones Negative (Negative); Urine Nitrite Negative (Negative); Urine Protein 1+(30 mg/dL) (Negative); Urine Specific Gravity 1.015 (1.010-1.030); Urine Urobilinogen Negative (Negative)
[2020-09-14 11:27] LABS: Urine Bacteria Absent (Absent); Urine Red Blood Cell 2+(6-10/hpf) (Absent); Urine Squamous Epithelial Cell Present (Absent); Urine White Blood Cell 2+(11-20/hpf) (Absent)
[2020-09-14] MEDS ORDERED: Vancomycin 1,000 MG in NS 0.9% 250 ml 250 ML IVPB SCH (17:00)
[2020-09-14] MEDS ORDERED: Piperacillin/Tazobac ADVAN 3.375 GM in NS 0.9% 100 ml BAG 100 ML IV ONE (17:00)
[2020-09-14] MEDS ORDERED: Zosyn per Pharmacy NOTE FOLLOW UP SCH (17:00)
[2020-09-14] MEDS ORDERED: Metoprolol Tartrate 5 mg VIAL 5 ml VIAL (1 mg/ml) IV PRN (17:14)
[2020-09-14] MEDS ORDERED: Vancomycin 2000 MG X 1 dose, then per Pharmacy PROTOCOL IVPB ONE (18:00)
[2020-09-15] MEDS: Chlorhexidine MOUTHWASH 0.12% 15 ML UDC TOPICAL SCH ×6 (03:13→22:59)
[2020-09-15] MEDS: Metoclopramide 5 MG/ML VIAL (10 mg) IV SLOW PU SCH ×4 (03:13→18:59)
[2020-09-15] MEDS: Artificial Tear OPHTH.OINT 3.5 GM BOTH EYES SCH ×6 (03:13→21:51)
[2020-09-15] MEDS ORDERED: Norepinephrine 16MCG/ML IVPRE 4,000 MCG/250 ML BAG IV SCH (03:26)
[2020-09-15 04:39] LABS: Hematocrit 31 % (42-52); Hemoglobin 9.8 g/dL (14.0-18.0); Mean Corpuscular HGB Conc 32 g/dL (31-36); Mean Corpuscular Hemoglobin 31 pg (27-31); Mean Corpuscular Volume 96 fL (80-94); Mean Platelet Volume 11.3 fL (7.4-10.4); Platelet Count 165 10^3/uL (150-450); Red Cell Distribution Width 15 % (10-15); White Blood Count 23.8 10^3/uL (3.5-10.8)
[2020-09-15 04:40] LABS: ABS Basophils 0.1 10^3/ul (0-0.2); ABS Lymphocytes 0.1 10^3/ul (1.0-4.8); ABS Monocytes 0.4 10^3/ul (0-0.8); ABS Neutrophils 23.1 10^3/ul (1.5-7.7); Eosinophil % 0.1 %; Lymphocyte % 0.6 %
[2020-09-15 04:56] LABS: BUN/Creatinine Ratio 20.2 (8-20); Calcium 7.2 mg/dL (8.6-10.3); EGFR Non-African American 11.6 (>60); Magnesium 2.5 mg/dL (1.9-2.7); Phosphorus 10.2 mg/dL (2.5-5.0)
[2020-09-15] MEDS ORDERED: Vancomycin Random Level NOTE FOLLOW UP ONE (06:00)
[2020-09-15] MEDS: ZOSYN 3.375 GM Q12H per EXTENDED INFUSION IV SCH ×2 (06:42→16:54)
[2020-09-15] MEDS: Albuterol 2.5mg/3 ml (0.083%) NEB.SOLN INH SCH ×4 (07:10→23:30)
[2020-09-15] MEDS ORDERED: Heparin DRIP 25,000 UNITS BAG 25,000 UNITS/500 ML BAG IV PRN (07:22)
[2020-09-15] MEDS: Lanthanum 500 mg CHEW TAB SCH ×3 (07:50→16:36)
[2020-09-15] MEDS: Multivitamins ADULT w/MIN LIQ 15 ML UDC PO SCH (07:50)
[2020-09-15] MEDS: Pantoprazole VIAL 40 MG VIAL IV SCH ×2 (07:51→18:59)
[2020-09-15] MEDS: Heparin 5000 UNITS/ML 1 mL VIAL SUBCUT SCH ×2 (07:53→18:59)
[2020-09-15] MEDS ORDERED: Heparin 1,000 UNIT/ML 10 ml (10,000 UNITS) CATHLAB/DIALYSIS DIALYSIS ONE (08:00)
[2020-09-15] MEDS ORDERED: Vancomycin per Pharmacy 1 EA NOTE FOLLOW UP PRN (08:05)
[2020-09-15] MEDS: Phenylephrine IV 50 MG in NS 0.9% 250 ml 245 ML IV SCH ×2 (11:30→22:22)
[2020-09-15] MEDS ORDERED: Vancomycin 750 MG in NS 0.9% 250 ML IVPB ONE (18:00)
[2020-09-15] MEDS: Docusate LIQ 100 MG/10 ML UDC PO SCH (22:58)
[2020-09-16] MEDS ORDERED: fentaNYL 100 mcg/2 ml 50 MCG/ML VIAL IV SLOW PU PRN (01:54)
[2020-09-16] MEDS: Artificial Tear OPHTH.OINT 3.5 GM BOTH EYES SCH ×6 (02:20→20:05)
[2020-09-16] MEDS: Metoclopramide 5 MG/ML VIAL (10 mg) IV SLOW PU SCH ×4 (02:20→20:04)
[2020-09-16] MEDS: fentaNYL 100 mcg/2 ml 50 MCG/ML VIAL IV SLOW PU PRN ×2 (03:32→14:56)
[2020-09-16 03:38] LABS: Vancomycin Random 23.3 mcg/mL
[2020-09-16 04:07] LABS: Albumin 2.6 g/dL (3.2-5.2); Calcium 7.1 mg/dL (8.6-10.3); EGFR African American 17.4 (>60); EGFR Non-African American 14.4 (>60); Globulin 2.7 g/dL (2-4); Indirect Bilirubin 0.3 mg/dL (0.3-1.0); Magnesium 2.3 mg/dL (1.9-2.7); Phosphorus 6.4 mg/dL (2.5-5.0); Potassium 3.9 mmol/L (3.5-5.0); Total Bilirubin 0.6 mg/dL (0.2-1.0); Total Protein 5.3 g/dL (6.4-8.9)
[2020-09-16] MEDS: ZOSYN 3.375 GM Q12H per EXTENDED INFUSION IV SCH ×2 (04:47→17:23)
[2020-09-16] MEDS: Chlorhexidine MOUTHWASH 0.12% 15 ML UDC TOPICAL SCH ×5 (04:47→20:04)
[2020-09-16] MEDS ORDERED: Midazolam 2 mg/2 ml VIAL 1 mg/ml 2 ml VIAL (2 mg) ONE (05:05)
[2020-09-16 05:07] LABS: Hematocrit 27 % (42-52); Hemoglobin 8.9 g/dL (14.0-18.0); Mean Corpuscular HGB Conc 33 g/dL (31-36); Mean Corpuscular Hemoglobin 31 pg (27-31); Mean Corpuscular Volume 95 fL (80-94); Mean Platelet Volume 11.5 fL (7.4-10.4); Platelet Count 182 10^3/uL (150-450); Red Cell Distribution Width 15 % (10-15); White Blood Count 20.3 10^3/uL (3.5-10.8)
[2020-09-16] MEDS ORDERED: Midazolam 2 mg/2 ml VIAL 1 mg/ml 2 ml VIAL (2 mg) IV SLOW PU ONE ×2 (05:14→10:50)
[2020-09-16 07:19] LABS: ABS Lymphocytes 0.2 10^3/ul (1.0-4.8); ABS Monocytes 0.4 10^3/ul (0-0.8); ABS Neutrophils 19.7 10^3/ul (1.5-7.7); Eosinophil % 0.2 %; Lymphocyte % 0.9 %
[2020-09-16] MEDS: Docusate LIQ 100 MG/10 ML UDC PO SCH ×2 (07:29→20:04)
[2020-09-16] MEDS: Lanthanum 500 mg CHEW TAB SCH ×3 (07:29→17:10)
[2020-09-16] MEDS: Multivitamins ADULT w/MIN LIQ 15 ML UDC PO SCH (07:30)
[2020-09-16] MEDS: Pantoprazole VIAL 40 MG VIAL IV SCH ×2 (07:40→20:04)
[2020-09-16] MEDS: Albuterol 2.5mg/3 ml (0.083%) NEB.SOLN INH SCH ×3 (07:46→19:34)
[2020-09-16] MEDS: Heparin 5000 UNITS/ML 1 mL VIAL SUBCUT SCH ×2 (07:47→23:50)
[2020-09-16] MEDS ORDERED: Heparin DRIP 25,000 UNITS BAG 25,000 UNITS/500 ML BAG IV SCH (08:00)
[2020-09-16] MEDS ORDERED: Heparin 1,000 UNIT/ML 10 ml (10,000 UNITS) CATHLAB/DIALYSIS DIALYSIS ONE (09:00)
[2020-09-16] MEDS ORDERED: fentaNYL 100 mcg/2 ml 50 MCG/ML VIAL IV ONE ×2 (10:38→10:55)
[2020-09-16] MEDS ORDERED: Midazolam 5 mg/5 ml VIAL 1 mg/ml 5 ml VIAL (5 mg) IV SLOW PU ONE ×2 (10:38→10:55)
[2020-09-16] MEDS ORDERED: fentaNYL 100 mcg/2 ml 50 MCG/ML VIAL ONE ×2 (10:39→10:53)
[2020-09-16] MEDS: Midazolam 5 mg/5 ml VIAL 1 mg/ml 5 ml VIAL (5 mg) ONE ×2 (10:39→10:55)
[2020-09-16] MEDS ORDERED: Lidocaine 1% VIAL 10 MG/ML VIAL ONE (10:53)
[2020-09-16] MEDS ORDERED: Midazolam 5 mg/5 ml VIAL 1 mg/ml 5 ml VIAL (5 mg) ONE (10:53)
[2020-09-16] MEDS: Phenylephrine IV 50 MG in NS 0.9% 250 ml 245 ML IV SCH (14:28)
[2020-09-16] MEDS: Midazolam 2 mg/2 ml VIAL 1 mg/ml 2 ml VIAL (2 mg) IV SLOW PU PRN (23:25)
[2020-09-17] MEDS: Chlorhexidine MOUTHWASH 0.12% 15 ML UDC TOPICAL SCH ×6 (00:25→20:04)
[2020-09-17] MEDS: Albuterol 2.5mg/3 ml (0.083%) NEB.SOLN INH SCH ×4 (00:57→19:54)
[2020-09-17] MEDS: Artificial Tear OPHTH.OINT 3.5 GM BOTH EYES SCH ×6 (01:56→20:05)
[2020-09-17] MEDS: Metoclopramide 5 MG/ML VIAL (10 mg) IV SLOW PU SCH ×4 (02:01→20:04)
[2020-09-17] MEDS: fentaNYL 100 mcg/2 ml 50 MCG/ML VIAL IV SLOW PU PRN ×2 (03:43→15:45)
[2020-09-17] MEDS: ZOSYN 3.375 GM Q12H per EXTENDED INFUSION IV SCH ×2 (05:07→17:22)
[2020-09-17 05:32] LABS: ABS Lymphocytes 0.2 10^3/ul (1.0-4.8); ABS Monocytes 0.3 10^3/ul (0-0.8); ABS Neutrophils 15.7 10^3/ul (1.5-7.7); Eosinophil % 0.2 %; Hematocrit 27 % (42-52); Hemoglobin 8.9 g/dL (14.0-18.0); Lymphocyte % 1.3 %; Mean Corpuscular HGB Conc 33 g/dL (31-36); Mean Corpuscular Hemoglobin 31 pg (27-31); Mean Corpuscular Volume 94 fL (80-94); Mean Platelet Volume 10.2 fL (7.4-10.4); Platelet Count 176 10^3/uL (150-450); Red Blood Count 2.88 10^6 /uL (4.18-5.48); Red Cell Distribution Width 14 % (10-15); White Blood Count 16.3 10^3/uL (3.5-10.8)
[2020-09-17] MEDS: Midazolam 2 mg/2 ml VIAL 1 mg/ml 2 ml VIAL (2 mg) IV SLOW PU PRN (05:48)
[2020-09-17 05:56] LABS: BUN/Creatinine Ratio 17.9 (8-20); Calcium 7.7 mg/dL (8.6-10.3); EGFR African American 16.3 (>60); EGFR Non-African American 13.5 (>60); Magnesium 2.3 mg/dL (1.9-2.7); Phosphorus 8.6 mg/dL (2.5-5.0); Potassium 4.3 mmol/L (3.5-5.0)
[2020-09-17 06:11] LABS: Vancomycin Random 14.6 mcg/mL
[2020-09-17] MEDS ORDERED: Midazolam 2 mg/2 ml VIAL 1 mg/ml 2 ml VIAL (2 mg) IV SLOW PU PRN (06:30)
[2020-09-17] MEDS: Docusate LIQ 100 MG/10 ML UDC PO SCH ×2 (09:36→20:04)
[2020-09-17] MEDS: Pantoprazole VIAL 40 MG VIAL IV SCH ×2 (09:36→20:04)
[2020-09-17] MEDS: Heparin 5000 UNITS/ML 1 mL VIAL SUBCUT SCH ×2 (09:36→20:04)
[2020-09-17] MEDS: Multivitamins ADULT w/MIN LIQ 15 ML UDC PO SCH (09:36)
[2020-09-17] MEDS: Lanthanum 500 mg CHEW TAB SCH ×3 (09:37→17:22)
[2020-09-17] MEDS: Phenylephrine IV 50 MG in NS 0.9% 250 ml 245 ML IV SCH ×3 (09:49→20:25)
[2020-09-17] MEDS ORDERED: Vancomycin 750 MG in NS 0.9% 250 ML IVPB ONE (17:00)
[2020-09-17] MEDS ORDERED: Furosemide 20 mg/2 ml IV VIAL IV SLOW PU ONE (18:11)
[2020-09-18] MEDS: Chlorhexidine MOUTHWASH 0.12% 15 ML UDC TOPICAL SCH ×7 (00:21→23:32)
[2020-09-18] MEDS: Albuterol 2.5mg/3 ml (0.083%) NEB.SOLN INH SCH ×2 (00:50→08:12)
[2020-09-18] MEDS: Phenylephrine IV 50 MG in NS 0.9% 250 ml 245 ML IV SCH ×4 (01:18→18:16)
[2020-09-18] MEDS: Artificial Tear OPHTH.OINT 3.5 GM BOTH EYES SCH ×6 (03:08→20:06)
[2020-09-18] MEDS: Metoclopramide 5 MG/ML VIAL (10 mg) IV SLOW PU SCH ×2 (03:09→09:01)
[2020-09-18 04:26] LABS: ABS Basophils 0.1 10^3/ul (0-0.2); ABS Lymphocytes 0.1 10^3/ul (1.0-4.8); ABS Monocytes 0.2 10^3/ul (0-0.8); ABS Neutrophils 15.2 10^3/ul (1.5-7.7); Eosinophil % 0.2 %; Hematocrit 27 % (42-52); Hemoglobin 8.6 g/dL (14.0-18.0); Lymphocyte % 0.7 %; Mean Corpuscular HGB Conc 32 g/dL (31-36); Mean Corpuscular Hemoglobin 31 pg (27-31); Mean Corpuscular Volume 95 fL (80-94); Mean Platelet Volume 9.8 fL (7.4-10.4); Platelet Count 185 10^3/uL (150-450); Red Blood Count 2.79 10^6 /uL (4.18-5.48); Red Cell Distribution Width 14 % (10-15); White Blood Count 15.7 10^3/uL (3.5-10.8)
[2020-09-18 04:51] LABS: Vancomycin Random 21.4 mcg/mL
[2020-09-18 04:55] LABS: BUN/Creatinine Ratio 18.6 (8-20); Calcium 7.4 mg/dL (8.6-10.3); EGFR Non-African American 9.9 (>60); Magnesium 2.5 mg/dL (1.9-2.7); Potassium 4.4 mmol/L (3.5-5.0)
[2020-09-18] MEDS: ZOSYN 3.375 GM Q12H per EXTENDED INFUSION IV SCH ×2 (05:16→16:23)
[2020-09-18] MEDS ORDERED: Vancomycin Random Level NOTE FOLLOW UP ONE (06:00)
[2020-09-18] MEDS: Lanthanum 500 mg CHEW TAB SCH ×3 (08:59→16:15)
[2020-09-18] MEDS: Multivitamins ADULT w/MIN LIQ 15 ML UDC PO SCH (08:59)
[2020-09-18] MEDS: Docusate LIQ 100 MG/10 ML UDC PO SCH ×2 (08:59→20:06)
[2020-09-18] MEDS: Pantoprazole VIAL 40 MG VIAL IV SCH ×2 (09:02→20:06)
[2020-09-18] MEDS: Heparin 5000 UNITS/ML 1 mL VIAL SUBCUT SCH ×2 (09:05→20:06)
[2020-09-18] MEDS ORDERED: Sodium Bicarb 8.4% Vial 50 ML 150 MEQ in D5W 1000 ml BAG 850 ML IV SCH ×3 (11:00→23:31)
[2020-09-18] MEDS ORDERED: Metoclopramide 5 MG/ML VIAL (10 mg) IV SLOW PU PRN (11:25)
[2020-09-18] MEDS ORDERED: Phenylephrine IV 10 MG/ML 1 ml VIAL ONE (12:09)
[2020-09-18] MEDS: fentaNYL 100 mcg/2 ml 50 MCG/ML VIAL IV SLOW PU PRN ×3 (19:19→22:27)
[2020-09-18] MEDS ORDERED: Midazolam 2 mg/2 ml VIAL 1 mg/ml 2 ml VIAL (2 mg) IV SLOW PU ONE (21:09)
[2020-09-18] MEDS ORDERED: Midazolam 2 mg/2 ml VIAL 1 mg/ml 2 ml VIAL (2 mg) ONE (21:20)
[2020-09-18] MEDS ORDERED: Propofol 10 mg/ml 100 ML BTL 100 ML IV SCH (23:00)
[2020-09-18] MEDS: Propofol* 20 ML VIAL - FOR IV LINE PRIMING ONLY SCH (23:29)
[2020-09-18] MEDS ORDERED: Vasopressin 100 UNITS in D5W 250 ml BAG 245 ML IV SCH (23:30)
[2020-09-19] MEDS: fentaNYL 100 mcg/2 ml 50 MCG/ML VIAL IV SLOW PU PRN (00:43)
[2020-09-19] MEDS: Phenylephrine IV 50 MG in NS 0.9% 250 ml 245 ML IV SCH ×4 (01:07→13:38)
[2020-09-19] MEDS: Artificial Tear OPHTH.OINT 3.5 GM BOTH EYES SCH ×5 (02:05→18:44)
[2020-09-19] MEDS: Propofol 10 mg/ml 100 ML BTL 100 ML IV SCH ×4 (02:05→17:03)
[2020-09-19] MEDS ORDERED: Heparin DRIP 25,000 UNITS BAG 25,000 UNITS/500 ML BAG IV SCH (02:15)
[2020-09-19 02:33] LABS: ABS Lymphocytes 0.1 10^3/ul (1.0-4.8); ABS Monocytes 0.2 10^3/ul (0-0.8); ABS Neutrophils 13.8 10^3/ul (1.5-7.7); Eosinophil % 0.2 %; Hematocrit 26 % (42-52); Hemoglobin 8.4 g/dL (14.0-18.0); Lymphocyte % 0.8 %; Mean Corpuscular HGB Conc 33 g/dL (31-36); Mean Corpuscular Hemoglobin 31 pg (27-31); Mean Corpuscular Volume 95 fL (80-94); Mean Platelet Volume 10.1 fL (7.4-10.4); Platelet Count 171 10^3/uL (150-450); Red Blood Count 2.73 10^6 /uL (4.18-5.48); Red Cell Distribution Width 14 % (10-15); White Blood Count 14.2 10^3/uL (3.5-10.8)
[2020-09-19 02:40] LABS: Activated Partial Thrombo Time 30.2 seconds (26.0-38.0); INR 1.19 (0.82-1.09)
[2020-09-19 02:48] LABS: BUN/Creatinine Ratio 18.4 (8-20); Calcium 7.6 mg/dL (8.6-10.3); EGFR African American 10.2 (>60); EGFR Non-African American 8.4 (>60); Magnesium 2.5 mg/dL (1.9-2.7); Potassium 4.2 mmol/L (3.5-5.0)
[2020-09-19] MEDS ORDERED: Heparin 5000 UNITS/ML 1 mL VIAL IV SCH (03:00)
[2020-09-19] MEDS: Chlorhexidine MOUTHWASH 0.12% 15 ML UDC TOPICAL SCH ×4 (04:35→16:06)
[2020-09-19] MEDS: ZOSYN 3.375 GM Q12H per EXTENDED INFUSION IV SCH ×2 (05:14→17:30)
[2020-09-19] MEDS ORDERED: Vancomycin Random Level NOTE FOLLOW UP ONE (06:00)
[2020-09-19] MEDS ORDERED: Norepinephrine 16MCG/ML IVPRE 4,000 MCG/250 ML BAG IV ONE (08:45)
[2020-09-19] MEDS: Pantoprazole VIAL 40 MG VIAL IV SCH (08:54)
[2020-09-19] MEDS: Multivitamins ADULT w/MIN LIQ 15 ML UDC PO SCH (08:54)
[2020-09-19] MEDS: Docusate LIQ 100 MG/10 ML UDC PO SCH (08:55)
[2020-09-19] MEDS ORDERED: Norepinephrine 16MCG/ML IVPRE 4,000 MCG/250 ML BAG IV SCH (09:00)
[2020-09-19] MEDS: Lanthanum 500 mg CHEW TAB SCH ×4 (09:00→16:49)
[2020-09-19] MEDS: Heparin 1,000 UNIT/ML 10 ml (10,000 UNITS) CATHLAB/DIALYSIS DIALYSIS ONE ×3 (09:22→11:24)
[2020-09-19] MEDS: Propofol* 20 ML VIAL - FOR IV LINE PRIMING ONLY SCH (10:39)
[2020-09-19] MEDS ORDERED: Perflutren Lipid Microsphere 3 ML VIAL ONE (12:07)
[2020-09-19] MEDS ORDERED: Vancomycin 750 MG in NS 0.9% 250 ML IVPB ONE (17:00)
[2020-09-19] MEDS ORDERED: Atropine 1% (ORAL/SL) 15 ML BTL SL PRN (20:15)
[2020-09-19] MEDS ORDERED: Lorazepam PYXIS KEY PRN (20:16)
[2020-09-19] MEDS ORDERED: Lorazepam PYXIS KEY ONE ×2 (20:24→20:33)
[2020-09-19] MEDS ORDERED: LORazepam 2 mg VIAL 1 ml ONE ×2 (20:24→20:33)
[2020-09-19] MEDS: LORazepam 2 mg VIAL 1 ml IV PUSH PRN ×2 (20:25→20:35)
[2020-09-19 21:05] VITALS: BP 108/63
[2020-09-20] MEDS ORDERED: Vancomycin Random Level NOTE FOLLOW UP ONE (06:00)
== END 2020-09-19 21:04 | disposition expired | DRG 870 ==
LOC: ED 21:59 → ICU 23:41
PROVIDERS: ADMIT Internal Medicine; ATTEND Internal Medicine